=== PATIENT | female | born 1995 | race Caucasian/White ===

== ENCOUNTER 2017-04-11 16:34 | Emergency (ER) | payer BC ==
[2017-04-11 16:59] VITALS: BP 127/68
--- NOTE | 2017-04-11 17:50 | EDM.PDOC ---
ED HPI GENERAL MEDICAL PROBLEM - General Chief Complaint: Cardiovascular Problem Stated Complaint: CHEST PAIN OFF AND ON Time Seen by Provider: 04/11/17 17:30 Source of Information: Reports: Patient History Limitations: Reports: No Limitations - History of Present Illness INITIAL COMMENTS - FREE TEXT/NARRATIVE: 22-year-old female presents for evaluation and treatment of chest pain. She states that the chest pain started around October. She states that a first with episodic but now appears more constant. States is located on the left side of her chest and she describes it as a pressure and a "pushing sensation." She states she can't expand her lungs. She has seen a chiropractor but this has not provided much relief. She reports associated symptoms of nausea, lightheadedness and hot and cold intolerances. She denies any syncope or chest palpitations. She reports the pain is worse with movement and deep breathing. Patient reports over the last 2 years she has lost approximately 35 pounds unintentionally. Patient reports feeling nauseated constantly since October. No vomiting. Patient reports that she has taken 6 test since October and all have come back negative. Last menstrual period was about 4 days late and was March 3 today. She states that it was heavier than normal. Patient reports in October she went through a breakup. She states that things are better because of this and she is not having anxiety from this. She initiated the breakup does not feel remorseful about it. Patient asks we be as quick as possible as she has plans to make dinner for her father handy. Chest Pain Score (Numeric/FACES): 4 - Related Data Allergies Allergy/AdvReac Type Severity Reaction Status Date / Time Penicillins Allergy Hives Verified 04/11/17 16:59 strawberry Allergy Hives Verified 04/11/17 16:59 Sulfa (Sulfonamide Allergy Rash Verified 04/11/17 16:59 Antibiotics) blue cheese Allergy Cannot Uncoded 04/11/17 16:59 Remember Home Meds: Home Meds Albuterol [Ventolin HFA] 2 puff INH Q4HR PRN 04/11/17 [History] Control 1 tab PO DAILY 04/11/17 [History] Past Medical History - Past Health History Medical/Surgical History: Denies Medical/Surgical History - Past Surgical History HEENT Surgical History: Reports: Oral Surgery Social & Family History - Family History Family Medical History: Noncontributory - Tobacco Use Smoking Status *Q: Current Every Day Smoker Years of Tobacco use: 3 Packs/Tins Daily: 0.5 - Recreational Drug Use Recreational Drug Use: No ED ROS GENERAL - Review of Systems Review Of Systems: See Below Constitutional: Reports: Weight Loss Respiratory: Reports: Shortness of Breath Cardiovascular: Reports: Chest Pain. Denies: Palpitations GI/Abdominal: Reports: Nausea. Denies: Abdominal Pain, Vomiting Neurological: Denies: Syncope Psychiatric: Denies: Anxiety ED EXAM, GENERAL - Physical Exam Exam: See Below Exam Limited By: No Limitations General Appearance: Alert, WD/WN, No Apparent Distress Eye Exam: Bilateral Eye: Normal Inspection Ears: Normal External Exam Nose: Normal Inspection Throat/Mouth: Normal Inspection, Normal Lips, Normal Voice, No Airway Compromise Neck: Normal Inspection Respiratory/Chest: No Respiratory Distress, Lungs Clear, Normal Breath Sounds Cardiovascular: Normal Peripheral Pulses, Regular Rate, Rhythm, No Murmur GI/Abdominal: Normal Bowel Sounds, Soft, Non-Tender Neurological: Alert, Oriented, Normal Cognition Psychiatric: Normal Affect, Normal Mood Skin Exam: Warm, Dry, Normal Color Course - Vital Signs Last Recorded V/S: Last Vital Signs Temp 36.2 C 04/11/17 16:55 Pulse 88 04/11/17 16:55 Resp 18 04/11/17 16:55 BP 127/68 04/11/17 16:55 Pulse Ox 99 04/11/17 16:55 - Orders/Labs/Meds Labs: Laboratory Tests 04/11/17 04/11/17 04/11/17 Range/Units 18:00 18:00 18:00 WBC 5.86 (3.98-10.04) K/mm3 RBC 4.14 (3.98-5.22) M/mm3 Hgb 12.0 (11.2-15.7) gm/L Hct 36.3 (34.1-44.9) % MCV 87.7 (79.4-94.8) fl MCH 29.0 (25.6-32.2) pg MCHC 33.1 (32.2-35.5) g/dl RDW Std Deviation 44.6 (36.4-46.3) fL Plt Count 252 (182-369) K/mm3 MPV 9.1 L (9.4-12.3) fl Neutrophils % (Manual) 67 H (40-60) % Band Neutrophils % 0 (0-10) % Lymphocytes % (Manual) 27 (20-40) % Atypical Lymphs % 0 % Monocytes % (Manual) 2 (2-10) % Eosinophils % (Manual) 3 (0.7-5.8) % Basophils % (Manual) 1 (0.1-1.2) Platelet Estimate Adequate RBC Morph Comment Normal Sodium 140 (136-145) mEq/L Potassium 4.0 (3.5-5.1) mEq/L Chloride 106 (98-107) mEq/L Carbon Dioxide 28 (21-32) mEq/L Anion Gap 10.0 (5-15) BUN 11 (7-18) mg/dL Creatinine 1.2 H (0.55-1.02) mg/dL Est Cr Clr Drug Dosing 74.81 mL/min Estimated GFR (MDRD) 57 (>60) mL/min BUN/Creatinine Ratio 9.2 L (14-18) Glucose 104 (74-106) mg/dL Calcium 8.7 (8.5-10.1) mg/dL Total Bilirubin 0.2 (0.2-1.0) mg/dL AST 22 (15-37) U/L ALT 35 (14-59) U/L Alkaline Phosphatase 65 (46-116) U/L C-Reactive Protein 2.0 H* (<1.0) mg/dL Total Protein 6.6 (6.4-8.2) g/dl Albumin 3.1 L (3.4-5.0) g/dl Globulin 3.5 gm/dL Albumin/Globulin Ratio 0.9 L (1-2) TSH 3rd Generation 1.042 (0.358-3.74) uIU/mL HCG, Qual Negative (NEGATIVE) - Radiology Interpretation Free Text/Narrative:: 2 view chest xray shows no acute intrathoracic process. - Re-Assessments/Exams Free Text/Narrative Re-Assessment/Exam: 04/11/17 18:49 Labs returned. I reviewed the labs and chest xray with the patient. At this point the etiology of her symptoms is unclear. She is anxious to go home as she has plans this evening. I will discharge her home at this time. Follow-up recommended within the next 1- 2 weeks. Departure - Departure Time of Disposition: 18:56 Disposition: Home, Self-Care 01 Condition: Good Clinical Impression: Atypical chest pain Instructions: Nonspecific Chest Pain Referrals: PCP,None [Primary Care Provider] - Brenda Onofre DO [Physician] - Forms: ED Department Discharge Additional Instructions: Go home and rest. Take [id number] Tylenol or Motrin as needed for pain relief. Follow up with family medicine in 1-[address] Brenda Onofer or Mercedes Boucher at [facility]. Please call [phone] to schedule with a provider there. Please return to the ER if your symptoms change or worsen.
--- NOTE | 2017-04-15 10:32 | CR ---
Chest: 2 views of the chest were obtained. Comparison: No prior study. Heart size and mediastinum are normal. Lungs are clear. Bony structures are within normal limits for the patient's age. Impression: 1. Nothing acute is identified on 2 view chest x-ray. Diagnostic code #1
== END 2017-04-11 19:20 | disposition home or self-care (01) ==
LOC: JD.ED 16:34
DX: R07.89 Other chest pain (principal); F17.210 Nicotine dependence, cigarettes, uncomplicated; Z88.0 Allergy status to penicillin; Z91.018 Allergy to other foods; Z88.2 Allergy status to sulfonamides; Z98.890 Other specified postprocedural states; Z79.899 Other long term (current) drug therapy
CPT/HCPCS: 36415; 71020; 71020-26; 80053; 84443; 84703; 85025; 86140; 99283; 99285

== ENCOUNTER 2024-06-11 12:57 | Emergency (ER) | payer BC, MEDICAID ==
[2024-06-11 14:29] LABS: BASOPHILS PERCENT AUTO 0.5 % (0.0-1.0); EOSINOPHILS ABSOLUTE AUTO 0.4 K/mm3 (0.0-0.4); EOSINOPHILS PERCENT AUTO 4.5 % (0.0-6.0); HEMATOCRIT 37.4 % (37.0-47.0); IMMATURE GRAN ABSOLUTE AUTO 0.03 K/mm3 (0.00-0.05); IMMATURE GRAN PERCENT AUTO 0.4 % (0.0-0.4); LYMPHOCYTES ABSOLUTE AUTO 1.7 K/mm3 (1.0-4.8); MEAN CORPUSCULAR HEMOGLOBIN 28.7 pg (28.0-32.0); MEAN CORPUSCULAR HGB CONC 32.1 g/dl (32.0-36.0); MEAN CORPUSCULAR VOLUME 89.5 fl (83.0-99.0); MONOCYTES ABSOLUTE AUTO 0.5 K/mm3 (0.0-0.8); MONOCYTES PERCENT AUTO 6.7 % (0.0-8.0); NEUTROPHILS ABSOLUTE AUTO 5.4 K/mm3 (1.8-7.7); NEUTROPHILS PERCENT AUTO 66.9 % (41.0-71.0); PLATELET COUNT,PLT 253 K/mm3 (150-400); RED BLOOD CELL COUNT 4.18 M/mm3 (4.10-5.30); WHITE BLOOD CELL COUNT,WBC 8.08 K/mm3 (3.9-11.3)
[2024-06-11 14:41] LABS: APPEARANCE,URINE SLT CLOUDY (Clear); BILIRUBIN,URINE NEGATIVE (Negative); COLOR,URINE YELLOW (Yellow); GLUCOSE,URINE NEGATIVE (Negative); KETONES,URINE NEGATIVE (Negative); LEUKOCYTE ESTERASE,URINE 1+ (Negative); NITRITE,URINE NEGATIVE (Negative); OCCULT BLOOD,URINE 3+ (Negative); PH,URINE 5.5 (5.0-8.0); PROTEIN,URINE 1+ (Negative); UROBILINOGEN,URINE 0.2 (0.2-1.0)
[2024-06-11 14:53] LABS: A/G RATIO 0.8 (1-2); ALBUMIN 3.2 g/dl (3.4-5.0); BILIRUBIN TOTAL 0.2 mg/dL (0.2-1.0); BUN/CREATININE RATIO 17.1 (14-18); C-REACTIVE PROTEIN 6.04 mg/dL (<0.30); CALCIUM 8.9 mg/dL (8.5-10.1); CREATININE 0.7 mg/dL (0.55-1.02); EST CRCL DRUG DOSING (CG) 120.7 mL/min; PROTEIN TOTAL,TP 7.1 g/dl (6.4-8.2)
[2024-06-11 15:00] LABS: BACTERIA,URINE FEW /hpf (FEW); MUCUS,URINE FEW /hpf (FEW); RBC,URINE TOO NUMEROUS TO CNT /hpf (0-5)
[2024-06-11 17:44] VITALS: BP 127/70; PULSE 78
== END 2024-06-11 17:34 | disposition home or self-care (01) ==
LOC: JD.ED 12:57
DX: N80.9 Endometriosis, unspecified (principal); F17.210 Nicotine dependence, cigarettes, uncomplicated; Z88.0 Allergy status to penicillin; Z88.2 Allergy status to sulfonamides; Z91.018 Allergy to other foods; Z91.048 Other nonmedicinal substance allergy status; Z79.899 Other long term (current) drug therapy
CPT/HCPCS: 36415; 76830; 76830-26; 80053; 81001; 81025; 85025; 86140; 87086; 99284

== ENCOUNTER 2024-06-18 06:43 | Inpatient (IN) | payer MEDICAID ==
[~2024-06-18 06:43] MED LIST: Lidocaine 1% 5 ML VIAL ONE; Midazolam 1 MG/ML 2 ML SDV ONE; Ondansetron 4 MG/2 ML SDV ONE; Propofol 200 MG/20 ML SDV ONE; Sodium Chloride 0.9% 10 ML Syringe FLUSH PRN; Sodium Chloride 0.9% 10 ML Syringe FLUSH SCH; ceFAZolin 2 GM Vial ONE; fentaNYL 100 MCG/2 ML SDV ONE
[2024-06-18] MEDS: Lactated Ringers 1,000 ML IV SCH ×2 (06:55→19:05)
[2024-06-18] MEDS ORDERED: Ondansetron 4 MG/2 ML SDV IVPUSH PRN (07:00)
[2024-06-18 07:02] LABS: BASOPHILS PERCENT AUTO 0.3 % (0.0-1.0); EOSINOPHILS ABSOLUTE AUTO 0.3 K/mm3 (0.0-0.4); EOSINOPHILS PERCENT AUTO 4.6 % (0.0-6.0); HEMATOCRIT 39.6 % (37.0-47.0); HEMOGLOBIN 12.9 gm/dl (12.0-16.0); IMMATURE GRAN ABSOLUTE AUTO 0.05 K/mm3 (0.00-0.05); IMMATURE GRAN PERCENT AUTO 0.8 % (0.0-0.4); LYMPHOCYTES PERCENT AUTO 30.5 % (24.0-44.0); MEAN CORPUSCULAR HEMOGLOBIN 28.6 pg (28.0-32.0); MEAN CORPUSCULAR HGB CONC 32.6 g/dl (32.0-36.0); MEAN CORPUSCULAR VOLUME 87.8 fl (83.0-99.0); MEAN PLATELET VOLUME 8.5 fl (9.4-12.3); MONOCYTES ABSOLUTE AUTO 0.4 K/mm3 (0.0-0.8); MONOCYTES PERCENT AUTO 6.8 % (0.0-8.0); NEUTROPHILS ABSOLUTE AUTO 3.7 K/mm3 (1.8-7.7); PLATELET COUNT,PLT 258 K/mm3 (150-400); RED BLOOD CELL COUNT 4.51 M/mm3 (4.10-5.30); WHITE BLOOD CELL COUNT,WBC 6.49 K/mm3 (3.9-11.3)
[2024-06-18] MEDS ORDERED: Tranexamic Acid 1,000 MG/10 ML Vial ONE (07:05)
[2024-06-18] MEDS ORDERED: Sodium Chloride 0.9% 100 ML ONE (07:05)
[2024-06-18] MEDS ORDERED: Succinylcholine 200 MG/10 ML MDV ONE (07:22)
[2024-06-18] MEDS ORDERED: Dexamethasone 4 MG/ML 5 ML MDV ONE (07:35)
[2024-06-18] MEDS ORDERED: fentaNYL 100 MCG/2 ML SDV ONE ×3 (07:36→09:35)
[2024-06-18] MEDS: Lidocaine 1% 30 ML SDV ONE (07:50)
[2024-06-18] MEDS ORDERED: Methylergonovine 0.2 MG/1 ML Amp ONE (07:57)
[2024-06-18] MEDS ORDERED: Lactated Ringers 1,000 ML ONE ×2 (08:04)
[2024-06-18] MEDS ORDERED: HYDROmorphone 0.5 MG/0.5 ML Syringe ONE ×2 (08:09→08:16)
[2024-06-18] MEDS ORDERED: Phenylephrine 1% 10 MG/ML SDV ONE (08:10)
[2024-06-18] MEDS ORDERED: Rocuronium 50 MG/5 ML Vial ONE (08:15)
[2024-06-18] MEDS ORDERED: ceFAZolin 2 GM Vial ONE ×3 (08:30)
[2024-06-18 08:44] LABS: BASOPHILS PERCENT AUTO 0.3 % (0.0-1.0); EOSINOPHILS ABSOLUTE AUTO 0.3 K/mm3 (0.0-0.4); EOSINOPHILS PERCENT AUTO 4.6 % (0.0-6.0); HEMATOCRIT 31.4 % (37.0-47.0); IMMATURE GRAN ABSOLUTE AUTO 0.04 K/mm3 (0.00-0.05); IMMATURE GRAN PERCENT AUTO 0.6 % (0.0-0.4); LYMPHOCYTES ABSOLUTE AUTO 1.8 K/mm3 (1.0-4.8); LYMPHOCYTES PERCENT AUTO 27.8 % (24.0-44.0); MEAN CORPUSCULAR HEMOGLOBIN 28.8 pg (28.0-32.0); MEAN CORPUSCULAR HGB CONC 31.5 g/dl (32.0-36.0); MEAN PLATELET VOLUME 8.6 fl (9.4-12.3); MONOCYTES ABSOLUTE AUTO 0.4 K/mm3 (0.0-0.8); MONOCYTES PERCENT AUTO 6.7 % (0.0-8.0); PLATELET COUNT,PLT 298 K/mm3 (150-400); RED BLOOD CELL COUNT 3.44 M/mm3 (4.10-5.30); WHITE BLOOD CELL COUNT,WBC 6.59 K/mm3 (3.9-11.3)
[2024-06-18 08:45] LABS: HEMOGLOBIN 9.9 gm/dl (12.0-16.0); MEAN CORPUSCULAR VOLUME 91.3 fl (83.0-99.0)
[2024-06-18] MEDS ORDERED: Neostigmine Methylsulfate 10 MG/10 ML MDV ONE (09:04)
[2024-06-18 09:12] LABS: INR 1.09; PROTHROMBIN TIME 11.5 SECONDS (9.7-12.0)
[2024-06-18] MEDS ORDERED: Ketorolac 30 MG/ML SDV ONE (09:13)
[2024-06-18 09:14] LABS: PTT,PARTIAL THROMBOPLSTIN TIME 25.1 SECONDS (21.7-31.4)
[2024-06-18] MEDS: HYDROmorphone 0.5 MG/0.5 ML Syringe IVPUSH PRN (10:05)
[2024-06-18] MEDS: fentaNYL 100 MCG/2 ML SDV IVPUSH PRN (10:37)
[2024-06-18] MEDS: Acetaminophen/oxyCODONE 325-5 MG Tab PO PRN (12:13)
[2024-06-18] MEDS ORDERED: Morphine 2 MG/ML SYRINGE IVPUSH PRN (14:28)
[2024-06-18] MEDS: Ketorolac 15 MG/ML SDV IVPUSH SCH (15:19)
[2024-06-18] MEDS: Benzocaine/Cetylpyridinium/Menthol Lozenge MUCMEM PRN (19:43)
[2024-06-18] MEDS: LORazepam 0.5 MG Tab PO ONE (20:45)
[2024-06-19] MEDS: Docusate Sodium 100 MG Cap PO SCH (00:41)
[2024-06-19] MEDS: Acetaminophen/oxyCODONE 325-5 MG Tab PO PRN (01:00)
[2024-06-19] MEDS: Simethicone 80 MG Tab.Chew PO PRN (01:07)
[2024-06-19 05:52] LABS: HEMATOCRIT 24.9 % (37.0-47.0); MEAN CORPUSCULAR HEMOGLOBIN 29.3 pg (28.0-32.0); MEAN CORPUSCULAR HGB CONC 32.9 g/dl (32.0-36.0); MEAN CORPUSCULAR VOLUME 88.9 fl (83.0-99.0); MEAN PLATELET VOLUME 8.6 fl (9.4-12.3); PLATELET COUNT,PLT 245 K/mm3 (150-400); WHITE BLOOD CELL COUNT,WBC 11.21 K/mm3 (3.9-11.3)
[2024-06-19 06:03] LABS: HEMOGLOBIN 8.2 gm/dl (12.0-16.0)
[2024-06-19] MEDS: Ibuprofen 600 MG Tab PO PRN (17:52)
[2024-06-19] MEDS ORDERED: Metoclopramide 10 MG/2 ML SDV IV ONE (19:42)
[2024-06-19] MEDS: METOCLOPRAMIDE IV SCH (20:14)
[2024-06-19] MEDS: SODIUM CHLORIDE 0.9% IV SCH (20:14)
[2024-06-19] MEDS: diphenhydrAMINE 50 MG/ML SDV IVPUSH ONE (20:14)
[2024-06-20 05:35] LABS: MEAN CORPUSCULAR HEMOGLOBIN 29.4 pg (28.0-32.0); MEAN CORPUSCULAR HGB CONC 32.2 g/dl (32.0-36.0); MEAN CORPUSCULAR VOLUME 91.3 fl (83.0-99.0); MEAN PLATELET VOLUME 8.7 fl (9.4-12.3); PLATELET COUNT,PLT 182 K/mm3 (150-400); RED BLOOD CELL COUNT 2.52 M/mm3 (4.10-5.30); WHITE BLOOD CELL COUNT,WBC 8.21 K/mm3 (3.9-11.3)
[2024-06-20 05:38] LABS: HEMOGLOBIN 7.4 gm/dl (12.0-16.0)
[2024-06-20] MEDS: Ondansetron 4 MG/2 ML SDV IVPUSH PRN (13:23)
[2024-06-20] MEDS ORDERED: diphenhydrAMINE 25 MG Cap PO PRN (13:31)
[2024-06-22 13:02] VITALS: BP 116/58; PULSE 87
== END 2024-06-20 17:45 | disposition home or self-care (01) | DRG 769 ==
LOC: JD.SDS 06:43 → JD.OB 09:54 → JD.MS 06-22 12:59
PROVIDERS: ADMIT Obstetrics & Gynecology; ATTEND Obstetrics & Gynecology
PROC: 0UT90ZZ Resection of Uterus, Open Approach (ICD-10-PCS; 2024-06-18)
PROC: 10D17ZZ Extraction of Products of Conception, Retained, Via Natural or Artificial Opening (ICD-10-PCS; 2024-06-18)
PROC: 30233N1 Transfusion of Nonautologous Red Blood Cells into Peripheral Vein, Percutaneous Approach (ICD-10-PCS; 2024-06-18)
PROC: 0UT70ZZ Resection of Bilateral Fallopian Tubes, Open Approach (ICD-10-PCS; principal; 2024-06-18 07:30)
DX: O72.2 Delayed and secondary postpartum hemorrhage (principal); E66.01 Morbid (severe) obesity due to excess calories; K21.9 Gastro-esophageal reflux disease without esophagitis; F32.A Depression, unspecified; F41.9 Anxiety disorder, unspecified; Z88.0 Allergy status to penicillin; Z91.018 Allergy to other foods; Z88.2 Allergy status to sulfonamides; Z87.11 Personal history of peptic ulcer disease
CPT/HCPCS: 00840; 36415; 36430; 74018; 74018-26; 85018; 85025; 85027; 85384; 85610; 85730; 86850; 86900; 86901; 86922; 94762; A9270-GY; J0330; J0690; J1100; J1171; J1200; J1885; J2210; J2250; J2371; J2405; J2704; J2710; J2765; J3010; J3490; J7040; J7120; P9016

== ENCOUNTER 2024-07-05 21:06 | Emergency (ER) | payer MEDICAID ==
[2024-07-05] MEDS ORDERED: cefTRIAXone 2 GM, Lidocaine 1% 4.2 ML IM ONE (21:15)
[2024-07-05] MEDS ORDERED: Ketorolac 60 MG/2 ML SDV IM ONE (21:18)
[2024-07-05] MEDS ORDERED: metroNIDAZOLE 500 MG Tab PO ONE (21:23)
[2024-07-05] MEDS: Ketorolac 60 MG/2 ML SDV IM ONE (21:58)
[2024-07-05 22:44] VITALS: BP 124/82; PULSE 85
== END 2024-07-05 22:44 | disposition home or self-care (01) ==
LOC: JD.ED 21:06
DX: M25.531 Pain in right wrist (principal); J45.909 Unspecified asthma, uncomplicated; Z79.899 Other long term (current) drug therapy; Z88.0 Allergy status to penicillin; Z91.018 Allergy to other foods; Z88.2 Allergy status to sulfonamides; Z91.048 Other nonmedicinal substance allergy status
CPT/HCPCS: 73110; 96372; 99283; J1885

== ENCOUNTER 2024-07-16 07:43 | Observation (INO) | payer MEDICAID ==
[2024-07-16] MEDS: Sodium Chloride 0.9% 1,000 ML IV SCH (09:20)
[2024-07-16] MEDS: HYDROmorphone 1 MG/ML Syringe IVPUSH ONE ×2 (09:20→10:05)
[2024-07-16] MEDS: Ondansetron 4 MG/2 ML SDV IVPUSH ONE (09:20)
[2024-07-16 09:32] LABS: BASOPHILS PERCENT AUTO 0.5 % (0.0-1.0); EOSINOPHILS ABSOLUTE AUTO 0.5 K/mm3 (0.0-0.4); EOSINOPHILS PERCENT AUTO 7.9 % (0.0-6.0); HEMATOCRIT 35.3 % (37.0-47.0); IMMATURE GRAN ABSOLUTE AUTO 0.02 K/mm3 (0.00-0.05); IMMATURE GRAN PERCENT AUTO 0.3 % (0.0-0.4); LYMPHOCYTES ABSOLUTE AUTO 1.6 K/mm3 (1.0-4.8); LYMPHOCYTES PERCENT AUTO 25.6 % (24.0-44.0); MEAN CORPUSCULAR HEMOGLOBIN 29.1 pg (28.0-32.0); MEAN CORPUSCULAR HGB CONC 31.7 g/dl (32.0-36.0); MEAN CORPUSCULAR VOLUME 91.7 fl (83.0-99.0); MEAN PLATELET VOLUME 8.8 fl (9.4-12.3); MONOCYTES ABSOLUTE AUTO 0.5 K/mm3 (0.0-0.8); MONOCYTES PERCENT AUTO 7.5 % (0.0-8.0); NEUTROPHILS ABSOLUTE AUTO 3.6 K/mm3 (1.8-7.7); NEUTROPHILS PERCENT AUTO 58.2 % (41.0-71.0); PLATELET COUNT,PLT 242 K/mm3 (150-400); RED BLOOD CELL COUNT 3.85 M/mm3 (4.10-5.30)
[2024-07-16] MEDS: Iopamidol 612 MG/ML 30 ML SDV IVPUSH ONE (09:38)
[2024-07-16] MEDS: Sodium Chloride 0.9% 10 ML Syringe FLUSH PRN (09:38)
[2024-07-16] MEDS: Iopamidol 612 MG/ML 100 ML Bottle IVPUSH ONE (09:38)
[2024-07-16 09:57] LABS: HEMOGLOBIN 11.2 gm/dl (12.0-16.0)
[2024-07-16 10:04] LABS: APPEARANCE,URINE CLEAR (Clear); BILIRUBIN,URINE NEGATIVE (Negative); COLOR,URINE YELLOW (Yellow); GLUCOSE,URINE NEGATIVE (Negative); KETONES,URINE NEGATIVE (Negative); LEUKOCYTE ESTERASE,URINE NEGATIVE (Negative); NITRITE,URINE NEGATIVE (Negative); OCCULT BLOOD,URINE NEGATIVE (Negative); PROTEIN,URINE NEGATIVE (Negative); UROBILINOGEN,URINE 0.2 (0.2-1.0)
[2024-07-16 10:16] LABS: A/G RATIO 0.9 (1-2); ALBUMIN 3.1 g/dl (3.4-5.0); ANION GAP 12.3 (5-15); BILIRUBIN TOTAL 0.2 mg/dL (0.2-1.0); C-REACTIVE PROTEIN 0.53 mg/dL (<0.30); CALCIUM 9.1 mg/dL (8.5-10.1); CREATININE 0.8 mg/dL (0.55-1.02); EST CRCL DRUG DOSING (CG) 105.61 mL/min; POTASSIUM,K 4.3 mEq/L (3.5-5.1); PROTEIN TOTAL,TP 6.7 g/dl (6.4-8.2)
[2024-07-16] MEDS: Ketorolac 30 MG/ML SDV IVPUSH ONE (11:29)
[2024-07-16] MEDS ORDERED: Simethicone 80 MG Tab.Chew PO PRN (11:40)
[2024-07-16] MEDS ORDERED: Ondansetron 4 MG/2 ML SDV IVPUSH PRN (11:40)
[2024-07-16] MEDS ORDERED: Docusate Sodium 100 MG Cap PO PRN (11:40)
[2024-07-16] MEDS ORDERED: LORazepam 1 MG Tab PO PRN (11:41)
[2024-07-16] MEDS: oxyCODONE 5 MG Tab PO PRN (13:23)
[2024-07-16] MEDS: Acetaminophen 325 MG Tab PO SCH (14:23)
[2024-07-16] MEDS: Ketorolac 15 MG/ML SDV IVPUSH SCH (16:32)
[2024-07-17 13:34] VITALS: BP 115/67; PULSE 75
== END 2024-07-17 13:15 | disposition home or self-care (01) ==
LOC: JD.ED 07:43 → JD.MS 11:36
PROVIDERS: ADMIT Obstetrics & Gynecology; ATTEND Obstetrics & Gynecology
DX: R10.9 Unspecified abdominal pain (principal); L76.82 Other postprocedural complications of skin and subcutaneous tissue; F32.A Depression, unspecified; K21.9 Gastro-esophageal reflux disease without esophagitis; F41.9 Anxiety disorder, unspecified; J45.909 Unspecified asthma, uncomplicated; F17.210 Nicotine dependence, cigarettes, uncomplicated; Z90.710 Acquired absence of both cervix and uterus; Z79.899 Other long term (current) drug therapy; Z88.0 Allergy status to penicillin; Z88.2 Allergy status to sulfonamides; Z91.018 Allergy to other foods
CPT/HCPCS: 36415; 74177; 80053; 81003; 83735; 85025; 86140; 96361; 96374; 96375; 96376; 99285; A9270; J1171; J1885; J2405; J3490; J7030; Q9967

== ENCOUNTER 2024-07-20 05:48 | Emergency (ER) | payer MEDICAID ==
[2024-07-20] MEDS ORDERED: Sodium Chloride 0.9% 10 ML Syringe FLUSH PRN (06:55)
[2024-07-20] MEDS: Morphine 4 MG/ML Syringe IVPUSH ONE (07:12)
[2024-07-20] MEDS: Sodium Chloride 0.9% 1,000 ML IV ONE (07:12)
[2024-07-20 07:34] LABS: BASOPHILS PERCENT AUTO 0.4 % (0.0-1.0); EOSINOPHILS ABSOLUTE AUTO 0.4 K/mm3 (0.0-0.4); EOSINOPHILS PERCENT AUTO 6.7 % (0.0-6.0); HEMATOCRIT 34.9 % (37.0-47.0); HEMOGLOBIN 11.1 gm/dl (12.0-16.0); IMMATURE GRAN ABSOLUTE AUTO 0.02 K/mm3 (0.00-0.05); IMMATURE GRAN PERCENT AUTO 0.4 % (0.0-0.4); LYMPHOCYTES ABSOLUTE AUTO 1.6 K/mm3 (1.0-4.8); LYMPHOCYTES PERCENT AUTO 29.4 % (24.0-44.0); MEAN CORPUSCULAR HEMOGLOBIN 28.8 pg (28.0-32.0); MEAN CORPUSCULAR HGB CONC 31.8 g/dl (32.0-36.0); MEAN CORPUSCULAR VOLUME 90.4 fl (83.0-99.0); MONOCYTES ABSOLUTE AUTO 0.4 K/mm3 (0.0-0.8); MONOCYTES PERCENT AUTO 7.2 % (0.0-8.0); NEUTROPHILS ABSOLUTE AUTO 3.1 K/mm3 (1.8-7.7); NEUTROPHILS PERCENT AUTO 55.9 % (41.0-71.0); PLATELET COUNT,PLT 226 K/mm3 (150-400); RED BLOOD CELL COUNT 3.86 M/mm3 (4.10-5.30); WHITE BLOOD CELL COUNT,WBC 5.54 K/mm3 (3.9-11.3)
[2024-07-20] MEDS: Iopamidol 612 MG/ML 100 ML Bottle IVPUSH ONE (07:43)
[2024-07-20] MEDS: Iopamidol 612 MG/ML 30 ML SDV IVPUSH ONE (07:43)
[2024-07-20] MEDS: Sodium Chloride 0.9% 10 ML Syringe FLUSH ONE (07:43)
[2024-07-20 07:58] LABS: A/G RATIO 0.9 (1-2); ALBUMIN 2.9 g/dl (3.4-5.0); ANION GAP 11.7 (5-15); BILIRUBIN TOTAL 0.1 mg/dL (0.2-1.0); CALCIUM 8.7 mg/dL (8.5-10.1); CREATININE 0.8 mg/dL (0.55-1.02); EST CRCL DRUG DOSING (CG) 105.61 mL/min; POTASSIUM,K 3.7 mEq/L (3.5-5.1); PROTEIN TOTAL,TP 6.2 g/dl (6.4-8.2)
[2024-07-20] MEDS: diphenhydrAMINE 50 MG/ML SDV IVPUSH ONE (08:06)
[2024-07-20] MEDS: droPERidol 5 MG/2 ML SDV IV ONE (08:06)
[2024-07-20] MEDS ORDERED: Magnesium Citrate Solution 296 ML Bottle PO ONE (09:29)
[2024-07-20 10:06] VITALS: BP 123/67; PULSE 76
== END 2024-07-20 09:48 | disposition home or self-care (01) ==
LOC: JD.ED 05:48
DX: R10.32 Left lower quadrant pain (principal); E66.9 Obesity, unspecified; Z90.710 Acquired absence of both cervix and uterus; Z79.899 Other long term (current) drug therapy; Z88.0 Allergy status to penicillin; Z88.2 Allergy status to sulfonamides; Z91.09 Other allergy status, other than to drugs and biological substances; Z91.018 Allergy to other foods; Z68.41 Body mass index [BMI] 40.0-44.9, adult
CPT/HCPCS: 36415; 74177; 80053; 83605; 83690; 85025; 96361; 96374; 96375; 99284; J1200; J1790; J2270; J3490; J7030; Q9967; 99283

== ENCOUNTER 2024-08-09 02:45 | Emergency (ER) | payer MEDICAID ==
[2024-08-09 03:00] VITALS: BP 123/62; PULSE 120
== END 2024-08-09 04:00 | disposition home or self-care (01) ==
LOC: JD.ED 02:45
DX: U07.1 COVID-19 (principal); J45.909 Unspecified asthma, uncomplicated; E66.9 Obesity, unspecified; Z90.710 Acquired absence of both cervix and uterus; Z88.0 Allergy status to penicillin; Z88.2 Allergy status to sulfonamides; Z91.018 Allergy to other foods; Z91.048 Other nonmedicinal substance allergy status; Z79.51 Long term (current) use of inhaled steroids; Z79.899 Other long term (current) drug therapy; Z68.42 Body mass index [BMI] 45.0-49.9, adult
CPT/HCPCS: 87428-QW; 99283; 99284

== ENCOUNTER 2025-02-18 08:44 | Emergency (ER) | payer MEDICAID ==
[2025-02-18] MEDS: Iopamidol 612 MG/ML 100 ML Bottle IVPUSH ONE (09:23)
[2025-02-18] MEDS: Sodium Chloride 0.9% 10 ML Syringe FLUSH ONE (09:23)
[2025-02-18] MEDS: Sodium Chloride 0.9% 1,000 ML IV SCH (09:30)
[2025-02-18] MEDS: Ondansetron 4 MG/2 ML SDV IVPUSH ONE (09:30)
[2025-02-18] MEDS: Ketorolac 30 MG/ML SDV IVPUSH ONE (09:30)
[2025-02-18] MEDS: Acetaminophen 325 MG Tab PO ONE (09:31)
[2025-02-18 10:01] LABS: BASOPHILS PERCENT AUTO 0.2 % (0.0-1.0); EOSINOPHILS ABSOLUTE AUTO 0.2 K/mm3 (0.0-0.4); EOSINOPHILS PERCENT AUTO 4.4 % (0.0-6.0); HEMATOCRIT 37.9 % (37.0-47.0); HEMOGLOBIN 12.5 gm/dl (12.0-16.0); IMMATURE GRAN ABSOLUTE AUTO 0.02 K/mm3 (0.00-0.05); IMMATURE GRAN PERCENT AUTO 0.5 % (0.0-0.4); LYMPHOCYTES PERCENT AUTO 23.9 % (24.0-44.0); MEAN CORPUSCULAR VOLUME 87.9 fl (83.0-99.0); MONOCYTES ABSOLUTE AUTO 0.5 K/mm3 (0.0-0.8); MONOCYTES PERCENT AUTO 11.5 % (0.0-8.0); NEUTROPHILS ABSOLUTE AUTO 2.6 K/mm3 (1.8-7.7); NEUTROPHILS PERCENT AUTO 59.5 % (41.0-71.0); PLATELET COUNT,PLT 179 K/mm3 (150-400); RED BLOOD CELL COUNT 4.31 M/mm3 (4.10-5.30); WHITE BLOOD CELL COUNT,WBC 4.35 K/mm3 (3.9-11.3)
[2025-02-18 10:22] LABS: INR 1.03; PROTHROMBIN TIME 10.9 SECONDS (9.7-12.0)
[2025-02-18 10:33] LABS: A/G RATIO 0.9 (1-2); ALBUMIN 2.8 g/dl (3.4-5.0); ANION GAP 9.4 (5-15); BILIRUBIN TOTAL 0.2 mg/dL (0.2-1.0); BUN/CREATININE RATIO 21.4 (14-18); CALCIUM 8.1 mg/dL (8.5-10.1); CREATININE 0.7 mg/dL (0.55-1.02); EST CRCL DRUG DOSING (CG) 120.7 mL/min; MAGNESIUM 1.8 mg/dL (1.8-2.4); POTASSIUM,K 3.4 mEq/L (3.5-5.1); PROTEIN TOTAL,TP 6.1 g/dl (6.4-8.2)
[2025-02-18 11:57] VITALS: BP 130/67; PULSE 85
== END 2025-02-18 11:15 | disposition home or self-care (01) ==
LOC: JD.ED 08:44
DX: K62.5 Hemorrhage of anus and rectum (principal); J45.909 Unspecified asthma, uncomplicated; Z88.0 Allergy status to penicillin; Z91.018 Allergy to other foods; Z88.2 Allergy status to sulfonamides; Z91.09 Other allergy status, other than to drugs and biological substances; Z79.51 Long term (current) use of inhaled steroids; Z79.899 Other long term (current) drug therapy; Z86.16 Personal history of COVID-19; Z90.710 Acquired absence of both cervix and uterus; Z87.19 Personal history of other diseases of the digestive system
CPT/HCPCS: 36415; 74177; 80053; 81025; 82550; 83605; 83690; 83735; 85025; 85610; 96361; 96374; 96375; 99284; A9270; J1885; J2405; J7030; Q9967

== ENCOUNTER 2025-03-31 07:19 | Emergency (ER) | payer MEDICAID ==
[2025-03-31 08:38] VITALS: BP 120/83; PULSE 78
== END 2025-03-31 08:37 | disposition home or self-care (01) ==
LOC: JD.ED 07:19
DX: M72.2 Plantar fascial fibromatosis (principal); E66.9 Obesity, unspecified; F17.200 Nicotine dependence, unspecified, uncomplicated; Z79.899 Other long term (current) drug therapy; Z79.51 Long term (current) use of inhaled steroids; Z88.8 Allergy status to other drugs, medicaments and biological substances; Z88.2 Allergy status to sulfonamides; Z91.018 Allergy to other foods; Z91.048 Other nonmedicinal substance allergy status; Z88.0 Allergy status to penicillin; Z86.16 Personal history of COVID-19; Z90.710 Acquired absence of both cervix and uterus; Z68.42 Body mass index [BMI] 45.0-49.9, adult
CPT/HCPCS: 73630-26-RT; 73630-RT; 99283

== ENCOUNTER 2025-05-05 10:39 | Emergency (ER) | payer MEDICAID ==
[2025-05-05 12:34] VITALS: BP 130/77
[2025-05-05 12:40] LABS: BASOPHILS ABSOLUTE AUTO 0.0 K/mm3 (0.0-0.2); BASOPHILS PERCENT AUTO 0.5 % (0.0-1.0); EOSINOPHILS ABSOLUTE AUTO 0.2 K/mm3 (0.0-0.4); EOSINOPHILS PERCENT AUTO 2.7 % (0.0-6.0); IMMATURE GRAN ABSOLUTE AUTO 0.06 K/mm3 (0.00-0.05); IMMATURE GRAN PERCENT AUTO 0.7 % (0.0-0.4); LYMPHOCYTES ABSOLUTE AUTO 1.8 K/mm3 (1.0-4.8); LYMPHOCYTES PERCENT AUTO 22.3 % (24.0-44.0); MEAN PLATELET VOLUME 8.8 fl (9.4-12.3); MONOCYTES ABSOLUTE AUTO 0.8 K/mm3 (0.0-0.8); MONOCYTES PERCENT AUTO 9.2 % (0.0-8.0); NEUTROPHILS ABSOLUTE AUTO 5.3 K/mm3 (1.8-7.7); NEUTROPHILS PERCENT AUTO 64.6 % (41.0-71.0); NRBC ABSOLUTE 0.00 (0.00-0.02); NRBC PERCENT 0.0 % (0.0-0.2); RED BLOOD CELL COUNT 5.27 M/mm3 (4.10-5.30); WHITE BLOOD CELL COUNT,WBC 8.25 K/mm3 (3.9-11.3)
[2025-05-05] MEDS: Sodium Chloride 0.9% 10 ML Syringe FLUSH PRN (12:41)
[2025-05-05 12:44] LABS: PLATELET COUNT,PLT 254 K/mm3 (150-400)
[2025-05-05 13:03] LABS: A/G RATIO 0.7 (1-2); ALANINE AMINOTRANSFERASE,ALT 23.0 U/L (14-59); ASPARTATE AMNIOTRANSFERASE,AST 13.0 U/L (15-37); BILIRUBIN TOTAL 0.3 mg/dL (0.2-1.0); BLOOD UREA NITROGEN,BUN 8.0 mg/dL (7-18); CARBON DIOXIDE,CO2 28.0 mEq/L (21-32); CHLORIDE,CL 104.0 mEq/L (98-107); CREATININE 0.8 mg/dL (0.55-1.02); EST CRCL DRUG DOSING (CG) 104.67 mL/min; ESTIMATED GFR 102.0 mL/min (>60); GLUCOSE RANDOM 93.0 mg/dL (70-99); POTASSIUM,K 3.6 mEq/L (3.5-5.1); PROTEIN TOTAL,TP 7.7 g/dl (6.4-8.2); SODIUM,NA 141.0 mEq/L (136-145)
[2025-05-05] MEDS: Ketorolac 30 MG/ML SDV IVPUSH ONE (13:05)
[2025-05-05 14:14] VITALS: PULSE 77
== END 2025-05-05 14:51 | disposition home or self-care (01) ==
LOC: JD.ED 10:39
DX: J02.0 Streptococcal pharyngitis (principal); E66.9 Obesity, unspecified; J45.909 Unspecified asthma, uncomplicated; Z79.899 Other long term (current) drug therapy; Z91.018 Allergy to other foods; Z91.09 Other allergy status, other than to drugs and biological substances; Z88.8 Allergy status to other drugs, medicaments and biological substances; Z90.710 Acquired absence of both cervix and uterus; Z68.42 Body mass index [BMI] 45.0-49.9, adult
CPT/HCPCS: 36415; 80053; 85025; 86140; 86308; 96374; 96375; 99283; J0696; J1885